=== PATIENT | female | born 1985 | race Caucasian/White ===

== ENCOUNTER 2019-03-19 19:34 | Emergency (ER) | payer BC, MEDICAID ==
[~2019-03-19] VITALS: Ht 167.6 cm; Wt 94.4 kg
[2019-03-19 19:44] VITALS: Ht 167.6 cm; Wt 94.4 kg
[2019-03-19 23:13] VITALS: BP 122/69
== END 2019-03-19 23:13 | disposition home or self-care (01) ==
LOC: ED 19:34
DX: S61.012A Laceration without foreign body of left thumb without damage to nail, initial encounter (principal); W26.0XXA Contact with knife, initial encounter; Y93.89 Activity, other specified; Y92.89 Other specified places as the place of occurrence of the external cause; Y99.8 Other external cause status
CPT/HCPCS: 90715; A4570; J2001

== ENCOUNTER 2020-01-02 20:19 | Emergency (ER) | payer BC, MEDICAID ==
[~2020-01-02] VITALS: Ht 172.7 cm; Wt 87.5 kg
[2020-01-02 20:34] VITALS: Ht 172.7 cm; Wt 87.5 kg
[2020-01-02 21:41] VITALS: BP 129/39
== END 2020-01-02 21:42 | disposition home or self-care (01) ==
LOC: ED 20:19
DX: S92.351A Displaced fracture of fifth metatarsal bone, right foot, initial encounter for closed fracture (principal); X50.1XXA Overexertion from prolonged static or awkward postures, initial encounter; Y93.89 Activity, other specified; Y92.89 Other specified places as the place of occurrence of the external cause; Y99.8 Other external cause status
CPT/HCPCS: Q0092